=== PATIENT | female | born 1995 | race Caucasian/White ===

== ENCOUNTER 2022-02-05 18:43 | Inpatient (IN) | payer BC ==
[2022-02-05] MEDS ORDERED: Sodium Chloride 0.9% 10 ML Syringe FLUSH PRN (21:02)
[2022-02-05] MEDS ORDERED: Acetaminophen 325 MG Tab PO PRN (21:02)
[2022-02-05] MEDS ORDERED: Misoprostol 100 MCG Tab VAG PRN (21:02)
[2022-02-05] MEDS ORDERED: Oxytocin/Lactated Ringers 10 UNIT/1,000 ML BAG IV SCH (21:15)
[2022-02-06] MEDS ORDERED: Misoprostol 100 MCG Tab VAG SCH (01:00)
[2022-02-06] MEDS ORDERED: Misoprostol 25 MCG (1/4 of 100 MCG) Tab VAG ONE (03:15)
[2022-02-06] MEDS: Lactated Ringers 1,000 ML IV SCH ×2 (09:33→18:02)
[2022-02-06] MEDS ORDERED: diphenhydrAMINE 50 MG/ML SDV IVPUSH PRN (16:48)
[2022-02-06] MEDS ORDERED: ePHEDrine 50 MG/ML SDV IVPUSH PRN (16:48)
[2022-02-06] MEDS ORDERED: fentaNYL 100 MCG/2 ML SDV EPIDUR PRN (16:48)
[2022-02-06] MEDS: Bupivacaine/fentaNYL/NS 100 ML Bag EPIDUR PRN (16:57)
[2022-02-06] MEDS ORDERED: Ondansetron 4 MG/2 ML SDV IVPUSH PRN (17:27)
[2022-02-06] MEDS ORDERED: Calcium Carbonate 500 MG Tab.Chew PO PRN (18:19)
[2022-02-06] MEDS ORDERED: Oxytocin/Lactated Ringers 20 UNIT/1,000 ML BAG IV SCH (20:15)
[2022-02-07] MEDS: Lactated Ringers 1,000 ML IV SCH (01:20)
[2022-02-07] MEDS: Bupivacaine/fentaNYL/NS 100 ML Bag EPIDUR PRN (02:01)
[2022-02-07] MEDS ORDERED: Sodium Chloride 0.9% 10 ML Syringe FLUSH PRN (03:15)
[2022-02-07] MEDS ORDERED: Lactated Ringers 1,000 ML IV SCH (03:15)
[2022-02-07] MEDS ORDERED: Metoclopramide 10 MG/2 ML SDV IVPUSH ONE (03:15)
[2022-02-07] MEDS ORDERED: Azithromycin 500 MG in Sodium Chloride 0.9% 250 ML IV ONE (03:16)
[2022-02-07] MEDS: Citric Acid/Sodium Citrate Solution 30 ML Cup PO ONE ×2 (03:29→03:50)
[2022-02-07] MEDS ORDERED: Bupivacaine 0.5% 30 ML SDV ONE (03:41)
[2022-02-07] MEDS ORDERED: Citric Acid/Sodium Citrate Solution 30 ML Cup ONE (03:47)
[2022-02-07] MEDS ORDERED: Ondansetron 4 MG/2 ML SDV ONE (04:08)
[2022-02-07] MEDS ORDERED: Oxytocin 10 Units/1 ML SDV ONE ×2 (04:10→05:06)
[2022-02-07] MEDS ORDERED: ceFAZolin 1 GM Vial ONE ×2 (04:10→04:11)
[2022-02-07] MEDS ORDERED: Ketorolac 30 MG/ML SDV ONE (04:25)
[2022-02-07] MEDS ORDERED: Misoprostol 200 MCG Tab ONE (04:31)
[2022-02-07] MEDS ORDERED: Morphine PF 10 MG/10 ML SDV ONE (04:39)
[2022-02-07] MEDS ORDERED: Lactated Ringers 1,000 ML ONE ×2 (05:06)
[2022-02-07] MEDS ORDERED: fentaNYL 100 MCG/2 ML SDV IVPUSH PRN (05:22)
[2022-02-07] MEDS ORDERED: diphenhydrAMINE 50 MG/ML SDV IVPUSH PRN ×2 (05:22→07:00)
[2022-02-07] MEDS ORDERED: Ondansetron 4 MG/2 ML SDV IVPUSH PRN (05:22)
[2022-02-07] MEDS ORDERED: Carboprost Tromethamine 250 MCG/1 ML Amp ONE (05:27)
[2022-02-07] MEDS ORDERED: Naloxone 0.4 MG/ML SDV IVPUSH PRN (07:00)
[2022-02-07] MEDS ORDERED: Dextrose 5%-Lactated Ringers 1,000 ML IV SCH (07:00)
[2022-02-07] MEDS ORDERED: Acetaminophen/oxyCODONE 325-5 MG Tab PO PRN ×2 (07:00)
[2022-02-07] MEDS ORDERED: ePHEDrine 50 MG/ML SDV IVPUSH PRN (07:00)
[2022-02-07] MEDS ORDERED: Sodium Chloride 0.9% 10 ML Syringe FLUSH SCH (09:00)
[2022-02-07] MEDS: Ketorolac 30 MG/ML SDV IVPUSH SCH ×3 (11:36→23:00)
[2022-02-08] MEDS ORDERED: Ibuprofen 600 MG Tab PO PRN (05:00)
[2022-02-08] MEDS ORDERED: oxyCODONE 5 MG Tab PO PRN ×2 (08:38)
[2022-02-08] MEDS: Acetaminophen 325 MG Tab PO SCH ×3 (10:42→21:31)
[2022-02-08] MEDS: Docusate Sodium 100 MG Cap PO SCH ×2 (10:42→21:34)
[2022-02-08] MEDS: Ibuprofen 600 MG Tab PO SCH ×2 (12:33→18:10)
[2022-02-08 18:03] LABS: CORONAVIRUS COVID-19 NAA NEGATIVE (NEGATIVE)
[2022-02-09] MEDS: Ibuprofen 600 MG Tab PO SCH ×4 (00:18→17:05)
[2022-02-09] MEDS: Acetaminophen 325 MG Tab PO SCH ×4 (06:34→20:34)
[2022-02-09] MEDS: Docusate Sodium 100 MG Cap PO SCH ×2 (10:04→20:33)
[2022-02-10] MEDS: Magnesium Hydroxide 400 MG/5 ML Susp 30 ML Cup PO ONE ×2 (04:55→06:55)
[2022-02-10] MEDS: Acetaminophen 325 MG Tab PO SCH ×2 (04:56→10:51)
[2022-02-10] MEDS: Ibuprofen 600 MG Tab PO SCH ×2 (06:55)
[2022-02-10] MEDS: Docusate Sodium 100 MG Cap PO SCH (10:51)
== END 2022-02-10 11:50 | disposition home or self-care (01) | DRG 540 ==
LOC: JD.OBCHECK 18:43 → JD.OB 21:02 → OBSVTOIN 02-07 05:44 → JD.OB 02-07 05:45 → JD.MS 02-08 12:30
PROVIDERS: ADMIT Obstetrics & Gynecology; ATTEND Obstetrics & Gynecology
PROC: 10D00Z1 Extraction of Products of Conception, Low, Open Approach (ICD-10-PCS; principal; 2022-02-07)
PROC: 10907ZC Drainage of Amniotic Fluid, Therapeutic from Products of Conception, Via Natural or Artificial Opening (ICD-10-PCS; 2022-02-07)
PROC: 3E0P7VZ Introduction of Hormone into Female Reproductive, Via Natural or Artificial Opening (ICD-10-PCS; 2022-02-07)
PROC: 3E033VJ Introduction of Other Hormone into Peripheral Vein, Percutaneous Approach (ICD-10-PCS; 2022-02-07)
PROC: 10H07YZ Insertion of Other Device into Products of Conception, Via Natural or Artificial Opening (ICD-10-PCS; 2022-02-07)
PROC: 3E0R3BZ Introduction of Anesthetic Agent into Spinal Canal, Percutaneous Approach (ICD-10-PCS; 2022-02-07)
PROC: 00HU33Z Insertion of Infusion Device into Spinal Canal, Percutaneous Approach (ICD-10-PCS; 2022-02-07)
DX: O13.4 Gestational [pregnancy-induced] hypertension without significant proteinuria, complicating childbirth (principal); Z37.0 Single live birth; O99.214 Obesity complicating childbirth; O76 Abnormality in fetal heart rate and rhythm complicating labor and delivery; O62.1 Secondary uterine inertia; Z20.822 Contact with and (suspected) exposure to COVID-19; Z3A.37 37 weeks gestation of pregnancy; Z87.891 Personal history of nicotine dependence
CPT/HCPCS: 01967; 0241U; 36415; 51702; 59025; 85025; 85027; 86592; 86762; 86803; 86850; 86900; 86901; 87340; 94762; A9270-GY; G0433; J0456; J0690; J1885; J2274; J2370; J2405; J2590; J2765; J3010; J3490; J7050; J7120; J7121